=== PATIENT | female | born 1960 | race Caucasian/White ===

== ENCOUNTER 2016-11-11 21:01 | Emergency (ER) | payer OTHER ==
[~2016-11-11] VITALS: Ht 172.7 cm; Wt 117.9 kg
[~2016-11-11 21:01] MED LIST: ASPIRIN325 PO; ATIVAN0.5 MG PO; COZAAR100 MG PO; FLEXERIL PO; IBUPROFEN 600600 M1 PO; IBUPROFEN 800800 M1 PO; IBUPROFEN 800800 MG PO; LISINOPRIL10 MG; NOHOMEMEDICATIONS; NORCO 5-325 TA1 EACH PO; PENICILLIN VK500 M1 PO; PERCOCET 5-3251 EACH PO; SIMVASTATIN40 MG PO; ULTRAM 50MG TAB50 MG PO; VALIUM2 MG PO
[2016-11-11] MEDS ORDERED: COZAAR 50 MG TA50 MG PO (21:08)
[2016-11-11] MEDS ORDERED: NORCO 5-325 TA1 EACH PO (21:37)
[2016-11-11] MEDS ORDERED: PREDNISONE 20 M20 MG PO (21:54)
[2016-11-11 22:44] VITALS: BP 162/109
== END 2016-11-11 22:45 | disposition home or self-care (01) ==
LOC: ER 21:01
DX: S30.0XXA Contusion of lower back and pelvis, initial encounter (principal); M54.41 Lumbago with sciatica, right side; I10 Essential (primary) hypertension; F17.210 Nicotine dependence, cigarettes, uncomplicated; F10.99 Alcohol use, unspecified with unspecified alcohol-induced disorder; Z90.710 Acquired absence of both cervix and uterus; Z90.49 Acquired absence of other specified parts of digestive tract; W18.39XA Other fall on same level, initial encounter; Y93.89 Activity, other specified; Y92.89 Other specified places as the place of occurrence of the external cause; Y99.8 Other external cause status

== ENCOUNTER 2017-06-02 19:24 | Emergency (ER) | payer OTHER ==
[~2017-06-02] VITALS: Ht 172.7 cm; Wt 115.7 kg
[~2017-06-02 19:24] MED LIST changes: +COZAAR 50 MG TA50 MG PO; +PREDNISONE 20 M20 MG PO
[2017-06-02] MEDS ORDERED: MEDROXYPROGESTE10 MG PO (19:54)
[2017-06-02 20:11] LABS: BASOPHILS 0.8 % (0.0-2.0); EOSINOPHILS 2.3 % (0.0-3.0); HEMATOCRIT 39.4 % (37.0-47.0); HEMOGLOBIN 13.7 gm/dL (12.0-15.0); MCH 31.3 pg (26.0-34.0); MCHC 34.7 g/dL (28.0-37.0); MCV 90.2 fL (80.0-100.0); MONOCYTES 7.9 % (1.0-8.0); PLATELET COUNT 361 thou/uL (150-400); RBC 4.36 mil/uL (4.20-5.00); RDW 13.6 % (10.5-14.5); WBC 9.1 thou/uL (4.0-11.0)
[2017-06-02 20:12] LABS: URINE BILIRUBIN NEGATIVE (Negative); URINE BLOOD NEGATIVE (Negative); URINE CLARITY CLEAR; URINE COLOR YELLOW; URINE GLUCOSE-RANDOM* NEGATIVE (Negative); URINE KETONES NEGATIVE (Negative); URINE LEUKOCYTES NEGATIVE (Negative); URINE NITRITE NEGATIVE (Negative); URINE PROTEIN (DIPSTICK) NEGATIVE (Negative); URINE SPECIFIC GRAVITY 1.015 (1.005-1.035); URINE UROBILINOGEN 0.2 E.U./dl (0.2-1.0)
[2017-06-02 20:19] LABS: CALCIUM 9.2 mg/dL (8.5-10.1); CREATININE 0.9 mg/dL (0.6-1.0); POTASSIUM 3.8 mmol/L (3.5-5.1)
[2017-06-02 20:26] LABS: ALBUMIN 3.7 g/dL (3.4-5.0); TOTAL BILIRUBIN 0.3 mg/dL (<0.1-1.0); TOTAL PROTEIN 7.6 g/dL (6.4-8.2)
[2017-06-02] MEDS ORDERED: HYDROCODONE-AP1 EAC6 PO (20:59)
[2017-06-02 21:27] VITALS: BP 148/98
[2017-12-10] MEDS ORDERED: NORCO 5-325 TA1 EACH PO (03:03)
[2017-12-10] MEDS ORDERED: NAPROSYN500 MG PO (03:03)
[2018-01-15] MEDS ORDERED: LISINOPRIL10 MG PO (13:52)
[2018-01-19] MEDS ORDERED: AUGMENTIN 875-1 EACH PO (09:26)
[2018-01-19] MEDS ORDERED: OXYCODONE HCL 55 MG PO (09:26)
== END 2017-06-02 21:28 | disposition home or self-care (01) ==
LOC: ER 19:24
PROVIDERS: Nurse Practitioner Family
DX: N93.8 Other specified abnormal uterine and vaginal bleeding (principal); R10.2 Pelvic and perineal pain; I10 Essential (primary) hypertension; Z90.49 Acquired absence of other specified parts of digestive tract; Z90.710 Acquired absence of both cervix and uterus; Z87.891 Personal history of nicotine dependence